=== PATIENT | male | born 1980 | race Caucasian/White ===

== ENCOUNTER 2017-12-05 22:13 | Emergency (ER) | payer SELFPAY ==
[2017-12-05 23:26] LABS: CALCIUM 8.2 mg/dL (8.5-10.1); CARBON DIOXIDE 23.3 mmol/L (21-32); CHLORIDE SERUM 102 mmol/L (98-107); CREATININE SERUM 0.7 mg/dL (0.7-1.3); GFR1 > 60 mL/min; POTASSIUM SERUM 3.9 mmol/L (3.5-5.1); SODIUM SERUM 135 mmol/L (136-145)
[2017-12-05 23:29] LABS: GLUCOSE SERUM 464 mg/dL (74-106)
[2017-12-06 01:14] VITALS: BP 126/77
== END 2017-12-06 01:14 | disposition home or self-care (01) ==
LOC: ED 22:13
PROVIDERS: Emergency Medicine
DX: L03.012 Cellulitis of left finger (principal); E11.65 Type 2 diabetes mellitus with hyperglycemia
CPT/HCPCS: 82962; J0696; J1815; J1885; J2001; J7030

== ENCOUNTER 2017-12-08 12:49 | Emergency (ER) | payer SELFPAY ==
[~2017-12-08] VITALS: Ht 175.3 cm; Wt 74.8 kg
[2017-12-08 12:53] VITALS: Ht 175.3 cm; Wt 74.8 kg
[2017-12-08 15:10] VITALS: BP 133/77
== END 2017-12-08 15:10 | disposition home or self-care (01) ==
LOC: ED 12:49
DX: L03.012 Cellulitis of left finger (principal); E11.9 Type 2 diabetes mellitus without complications
CPT/HCPCS: J2001

== ENCOUNTER 2019-07-16 01:30 | Emergency (ER) | payer SELFPAY ==
[~2019-07-16] VITALS: Ht 172.7 cm; Wt 72.1 kg
[2019-07-16 01:38] VITALS: Ht 172.7 cm; Wt 72.1 kg
[2019-07-16 02:25] LABS: BASOPHIL % 0.3 % (0-2); PLATELET COUNT 205 x10^3mcL (130-400); RED CELL DISTRIBUTION WIDTH 12.6 % (11.5-14.5)
[2019-07-16 03:02] LABS: CALCIUM 8.9 mg/dL (8.5-10.1); CHLORIDE SERUM 103 mmol/L (98-107); CREATININE SERUM 0.7 mg/dL (0.7-1.3); GFR1 > 60 mL/min; GLUCOSE SERUM 195 mg/dL (74-106); POTASSIUM SERUM 3.1 mmol/L (3.5-5.1); SODIUM SERUM 140 mmol/L (136-145)
[2019-07-16 03:07] LABS: ALBUMIN 3.8 g/dL (3.4-5.0); ALKALINE PHOSPHATASE 120 U/L (46-116); ALT/SGPT 27 U/L (16-63); AST/SGOT 17 U/L (15-37); BILIRUBIN TOTAL 0.46 mg/dL (0.20-1.00); TOTAL PROTEIN, SERUM 6.3 g/dL (6.4-8.2)
[2019-07-16 04:20] VITALS: BP 114/73
== END 2019-07-16 04:23 | disposition home or self-care (01) ==
LOC: ED 01:30
PROVIDERS: Emergency Medicine
DX: F15.10 Other stimulant abuse, uncomplicated (principal)
CPT/HCPCS: 36415